=== PATIENT | male | born 2005 | race Caucasian/White ===

== ENCOUNTER → 2025-01-13 19:33 | Outpatient (REF) | payer OTHER, SELFPAY | LOC: MRI 19:33 | PROVIDERS: ATTENDING PHYSICIAN Physician Assistant Medical | DX: R51.9 Headache, unspecified (principal) | CPT/HCPCS: 70553; A9575 ==

== ENCOUNTER 2025-03-09 08:52 | Emergency (ER) | payer OTHER, SELFPAY ==
[2025-03-09 08:55] VITALS: BP 143/83
--- NOTE | 2025-03-09 09:15 | EDRN ---
Shan WILKINS in room w/pt at this time.
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
[2025-03-09] MEDS: NSS 1000 IV (09:32)
[2025-03-09] MEDS: ATIVAN 1 MG IV (09:32)
[2025-03-09 09:39] VITALS: BP 113/78
--- NOTE | 2025-03-09 09:53 | EDRN ---
Dr. Sy in room w/pt at this time.
[2025-03-09 09:58] LABS: Hematocrit 48.6 % (39.0-52.0); Hemoglobin 17.0 g/dL (13.0-18.0); Mean Corp Hgb Conc. 35.0 g/dL (33.0-37.0); Mean Corpuscular Volume 84.5 fL (80.0-94.0); Nucleated Red Blood Cells % 0 % (-); Platelet Count 268 10^3/uL (130-400); Red Cell Dist. Width 12.6 % (11.5-14.5)
[2025-03-09 10:00] VITALS: BP 121/77
[2025-03-09 10:03] VITALS: BMI 24.7
[2025-03-09 10:05] LABS: ALT (SGPT) 22 U/L (0-50); AST (SGOT) 21 U/L (17-59); Albumin 5.1 g/dl (3.5-5.0); Alkaline Phosphatase 52 U/L (38-126); Blood Urea Nitrogen 8 mg/dl (9-20); Calcium 10.3 mg/dl (8.4-10.2); Carbon Dioxide 25 mmol/L (22-30); Chloride 108 mmol/L (98-107); Estimated Creatinine Clearance > 125 ml/min; Glucose 96 mg/dl (70-99); Magnesium 2.3 mg/dl (1.6-2.3); Potassium 3.9 mmol/L (3.5-5.1); Sodium 141 mmol/L (135-145); Total Protein 7.6 g/dl (6.3-8.2); eGFR > 60.00
[2025-03-09 10:17] LABS: Troponin I < 0.012 ng/ml
--- NOTE | 2025-03-09 10:30 | EDRN ---
Shan WILKINS in to see pt.
== END 2025-03-09 10:44 | disposition home or self-care (01) ==
LOC: EMR 08:52
PROVIDERS: Physician Assistant; EMERGENCY PHYSICIAN Emergency Medicine; FAMILY PHYSICIAN Physician Assistant Medical
DX: R07.89 Other chest pain (principal); T75.4XXA Electrocution, initial encounter; W86.1XXA Exposure to industrial wiring, appliances and electrical machinery, initial encounter; Y92.009 Unspecified place in unspecified non-institutional (private) residence as the place of occurrence of the external cause; F41.9 Anxiety disorder, unspecified
CPT/HCPCS: 99284; 96374; 96361; 80053; 82550; 83735; 84484; 85025; 93005